=== PATIENT | female | born 1980 | race Caucasian/White ===

== ENCOUNTER 2019-11-17 13:23 | Emergency (ER) | payer OTHER ==
[~2019-11-17] VITALS: Ht 154.9 cm; Wt 68.0 kg
[2019-11-17 13:25] VITALS: Ht 154.9 cm; Wt 68.0 kg
[2019-11-17 14:50] VITALS: BP 122/78
== END 2019-11-17 14:50 | disposition home or self-care (01) ==
LOC: ED 13:23
DX: M54.42 Lumbago with sciatica, left side (principal); Z90.49 Acquired absence of other specified parts of digestive tract
CPT/HCPCS: J1885